=== PATIENT | female | born 1960 | race Caucasian/White ===

== ENCOUNTER 2024-11-07 20:59 | Emergency (ER) | payer OTHER, MEDICARE ==
[2024-11-07] MEDS: Acetaminophen/oxyCODONE 325-5 MG Tab PO ONE (22:40)
== END 2024-11-07 23:05 | disposition home or self-care (01) ==
LOC: MW.ED 20:59
DX: S82.141A Displaced bicondylar fracture of right tibia, initial encounter for closed fracture (principal); F17.210 Nicotine dependence, cigarettes, uncomplicated; Z79.899 Other long term (current) drug therapy; Z75.3 Unavailability and inaccessibility of health-care facilities; W22.8XXA Striking against or struck by other objects, initial encounter
CPT/HCPCS: 73562; 99283; A9270